=== PATIENT | female | born 1975 | race Caucasian/White ===

== ENCOUNTER 2017-06-04 01:56 | Emergency (ER) | payer OTHER ==
[~2017-06-04] VITALS: Ht 157.5 cm; Wt 87.2 kg
[~2017-06-04 01:56] MED LIST: CETI10CA PO
[2017-06-04] MEDS ORDERED: LISI-167 PO (02:06)
[2017-06-04] MEDS ORDERED: ONDANSETRON 2MG/ML, 2ML ONE (02:21)
[2017-06-04] MEDS ORDERED: MORPHINE SULFATE 4 MG/ML, 1ML ONE ×2 (02:21→03:28)
[2017-06-04] MEDS ORDERED: ONDANSETRON 2MG/ML, 2ML IVPush ONE (02:30)
[2017-06-04] MEDS ORDERED: SODIUM CHLORIDE FLUSH 10ML SYR IVF ONE (02:30)
[2017-06-04] MEDS: MORPHINE SULFATE 4 MG/ML, 1ML IVPush PRN ×2 (02:30→03:34)
[2017-06-04] MEDS ORDERED: SODIUM CHLORIDE 0.9% 1,000ML IVBOLUS ONE (02:30)
[2017-06-04 02:31] LABS: HEMATOCRIT 43.4 % (34.6-47.8); HEMOGLOBIN 14.4 g/dL (11.7-16.4); WHITE BLOOD COUNT 11.8 x10^3/uL (3.4-10)
[2017-06-04 02:41] LABS: ASPARTATE AMINO TRANSFERASE 25 U/L (15-37); BLOOD UREA NITROGEN 9 mg/dL (7-18)
[2017-06-04] MEDS ORDERED: OMNIPAQUE 350 MG/ML, 100ML BOTTLE ONE (03:29)
[2017-06-04 04:44] VITALS: BP 120/57
== END 2017-06-04 05:00 | disposition home or self-care (01) ==
LOC: ED 02:08
DX: K57.32 Diverticulitis of large intestine without perforation or abscess without bleeding (principal); I10 Essential (primary) hypertension; Z90.49 Acquired absence of other specified parts of digestive tract
CPT/HCPCS: 36415; 74177; 80053; 81003; 83690; 84703; 85025; 96361; 96374; 96375; 96376; 99285; J2405; J7030; Q9967

== ENCOUNTER 2018-08-10 07:40 | Emergency (ER) | payer OTHER ==
[~2018-08-10] VITALS: Ht 157.5 cm; Wt 93.7 kg
[~2018-08-10 07:40] MED LIST changes: +LISI-167 PO
[2018-08-10] MEDS ORDERED: ONDANSETRON ODT 4 MG PO ONE (08:00)
[2018-08-10] MEDS ORDERED: ONDANSETRON 2MG/ML, 2ML ONE (08:04)
[2018-08-10] MEDS ORDERED: HYDROmorphone 2 MG/ML, 1ML ONE ×2 (08:04→09:38)
[2018-08-10] MEDS ORDERED: SODIUM CHLORIDE FLUSH 10ML SYR IVF ONE (08:30)
[2018-08-10 08:44] LABS: BASOPHILS # (AUTO) 0.07 x10^3/uL (0-0.1); BASOPHILS % (AUTO) 1 % (0-1); EOSINOPHILS # (AUTO) 0.24 x10^3/uL (0-0.4); EOSINOPHILS % (AUTO) 3 % (1-7); LYMPHOCYTES # (AUTO) 2.58 x10^3/uL (1-3.4); LYMPHOCYTES % (AUTO) 30 % (22-44); MD NO; MEAN CORPUSCULAR HEMOGLOBIN 32.6 pg (27.0-34.8); MEAN CORPUSCULAR HGB CONC 34.8 g/dL (32.4-35.8); MEAN CORPUSCULAR VOLUME 93.6 fL (80-100); MEAN PLATELET VOLUME 8.2 fL (7.4-10.4); MONOCYTES # (AUTO) 0.38 x10^3/uL (0.2-0.8); MONOCYTES % (AUTO) 4 % (2-9); NEUTROPHILS # (AUTO) 5.32 x10^3/uL (1.8-6.8); NEUTROPHILS % (AUTO) 62 % (42-75); PLATELET COUNT 323 x10^3/uL (130-400); RED BLOOD COUNT 4.32 x10^6/uL (3.82-5.3); RED CELL DISTRIBUTION WIDTH 13.1 % (9.6-15.2)
[2018-08-10] MEDS: HYDROmorphone 2 MG/ML, 1ML IVPush PRN ×2 (08:46→09:41)
[2018-08-10 08:55] LABS: ALANINE AMINOTRANSFERASE 52 U/L (12-78); ALBUMIN 3.5 g/dL (3.4-5.0); ANION GAP 8 mmol/L (5-15); CALCIUM 8.5 mg/dL (8.5-10.1); CHLORIDE 107 mmol/L (98-107); CREATININE 0.54 mg/dL (0.55-1.02)
[2018-08-10 08:57] LABS: ALKALINE PHOSPHATASE 85 U/L (45-117); TOTAL PROTEIN 6.5 g/dL (6.4-8.2)
[2018-08-10 09:36] LABS: HCG UR SG 1.029 (1.003-1.030); MICROSCOPIC NOT IND
[2018-08-10 09:53] LABS: CULTURE INDICATED? NO
[2018-08-10] MEDS ORDERED: OMNIPAQUE 350 MG/ML, 100ML BOTTLE ONE (10:48)
[2018-08-10 11:52] VITALS: BP 121/68
== END 2018-08-10 12:04 | disposition home or self-care (01) ==
LOC: ED 08:35
DX: R10.31 Right lower quadrant pain (principal); I10 Essential (primary) hypertension
CPT/HCPCS: 36415; 74177; 80053; 81003; 81025; 83690; 85025; 96374; 96376; 99285; J1170; Q0162; Q9967

== ENCOUNTER 2019-01-31 05:10 | Emergency (ER) | payer OTHER ==
[~2019-01-31] VITALS: Ht 162.6 cm; Wt 98.0 kg
--- NOTE | 2019-01-31 05:19 | NUR ---
PT STATES HAVING AN ANXIETY ATTACK X TONIGHT
[2019-01-31] MEDS ORDERED: LORazepam 1MG TABLET ONE (05:25)
[2019-01-31] MEDS ORDERED: LORazepam 1MG TABLET PO ONE (05:30)
--- NOTE | 2019-01-31 05:37 | NUR ---
MEDICATED PER MD ORDER, FAMILY AT BEDSIDE, IN NAD AT THIS TIME
[2019-01-31 05:48] LABS: BASOPHILS # (AUTO) 0.05 x10^3/uL (0-0.1); BASOPHILS % (AUTO) 1 % (0-1); EOSINOPHILS # (AUTO) 0.73 x10^3/uL (0-0.4); EOSINOPHILS % (AUTO) 10 % (1-7); LYMPHOCYTES # (AUTO) 2.26 x10^3/uL (1-3.4); LYMPHOCYTES % (AUTO) 32 % (22-44); MD NO; MEAN CORPUSCULAR HGB CONC 34.3 g/dL (32.4-35.8); MEAN CORPUSCULAR VOLUME 93.2 fL (80-100); MEAN PLATELET VOLUME 8.2 fL (7.4-10.4); MONOCYTES # (AUTO) 0.24 x10^3/uL (0.2-0.8); MONOCYTES % (AUTO) 3 % (2-9); NEUTROPHILS # (AUTO) 3.78 x10^3/uL (1.8-6.8); NEUTROPHILS % (AUTO) 54 % (42-75); PLATELET COUNT 317 x10^3/uL (130-400); RED BLOOD COUNT 4.43 x10^6/uL (3.82-5.3); RED CELL DISTRIBUTION WIDTH 13.5 % (9.6-15.2)
[2019-01-31 06:03] LABS: ALANINE AMINOTRANSFERASE 75 U/L (12-78); ALBUMIN 3.5 g/dL (3.4-5.0); ANION GAP 10 mmol/L (5-15); CALCIUM 7.9 mg/dL (8.5-10.1); CHLORIDE 115 mmol/L (98-107); CREATININE 0.49 mg/dL (0.55-1.02)
[2019-01-31 06:07] LABS: ALKALINE PHOSPHATASE 108 U/L (45-117); BILIRUBIN,TOTAL 0.4 mg/dL (0.2-1.0); TOTAL PROTEIN 6.7 g/dL (6.4-8.2); TROPONIN I < 0.015 ng/mL (0.000-0.045)
[2019-01-31 06:22] VITALS: BP 156/89
--- NOTE | 2019-01-31 06:41 | NUR ---
Patient/Caregiver given discharge instructions and they have confirmed that they understand the instructions. Patient ambulatory with steady gait.
== END 2019-01-31 06:42 | disposition home or self-care (01) ==
LOC: ED 06:30
DX: F41.1 Generalized anxiety disorder (principal); F10.129 Alcohol abuse with intoxication, unspecified
CPT/HCPCS: 36415; 71045; 80053; 80307; 84484; 84703; 85025; 93005; 99284

== ENCOUNTER 2019-08-19 07:35 | Emergency (ER) | payer OTHER ==
[~2019-08-19] VITALS: Ht 157.5 cm; Wt 95.5 kg
[2019-08-19 07:45] VITALS: BP 159/117
[2019-08-19] MEDS ORDERED: OXYcodone/APAP 5/325MG TABLET ONE (08:09)
[2019-08-19] MEDS ORDERED: OXYcodone/APAP 5/325MG TABLET PO ONE (08:30)
--- NOTE | 2019-08-19 09:32 | NUR ---
Patient/Caregiver given discharge instructions and they have confirmed that they understand the instructions. Patient demonstrates proper use of crutches. D/C via wheelchair
== END 2019-08-19 09:34 | disposition home or self-care (01) ==
LOC: ED 09:34
DX: S92.325A Nondisplaced fracture of second metatarsal bone, left foot, initial encounter for closed fracture (principal); X58.XXXA Exposure to other specified factors, initial encounter; Y93.89 Activity, other specified; Y92.89 Other specified places as the place of occurrence of the external cause; Y99.8 Other external cause status
CPT/HCPCS: 29515; 99283

== ENCOUNTER 2019-09-11 05:14 | Day surgery (SDC) | payer OTHER ==
[2019-09-08 15:28] LABS: ALANINE AMINOTRANSFERASE 82 U/L (12-78); ALBUMIN 3.6 g/dL (3.4-5.0); ANION GAP 6 mmol/L (5-15); CALCIUM 8.9 mg/dL (8.5-10.1); CHLORIDE 107 mmol/L (98-107); CREATININE 0.56 mg/dL (0.55-1.02)
[2019-09-08 15:31] LABS: ALKALINE PHOSPHATASE 106 U/L (45-117); BILIRUBIN,TOTAL 1.2 mg/dL (0.2-1.0); TOTAL PROTEIN 7.1 g/dL (6.4-8.2)
[~2019-09-11] VITALS: Ht 157.5 cm; Wt 99.8 kg
[~2019-09-11 05:14] MED LIST changes: +ACET650S21 PO; +DIPH25CA61 PO; +OXYC5CAP2 PO
[2019-09-11] MEDS ORDERED: LACTATED RINGERS 1,000 ML IV SCH (06:04)
[2019-09-11] MEDS ORDERED: LIDOCAINE-MPF 1%, 2ML INFIL ONE (06:30)
[2019-09-11] MEDS ORDERED: BUPIVACAINE/PF 0.25% ONE (06:31)
[2019-09-11] MEDS ORDERED: LIDOCAINE-MPF 2% ,5ML ONE (06:31)
[2019-09-11] MEDS ORDERED: MIDAZOLAM 1 MG/ML, 2ML ONE (06:32)
[2019-09-11] MEDS ORDERED: FENTANYL PF 100 MCG/2ML ONE ×4 (06:32→10:03)
[2019-09-11 06:35] VITALS: BP 148/85
[2019-09-11] MEDS ORDERED: GABAPENTIN 300 MG CAPSULE PO ONE (07:00)
[2019-09-11] MEDS ORDERED: ACETAMINOPHEN 500 MG TABLET PO ONE (07:00)
[2019-09-11] MEDS ORDERED: CEFAZOLIN 1,000 MG ONE ×2 (07:11)
[2019-09-11] MEDS ORDERED: DEXAMETHASONE 4 MG/ML, 1ML ONE ×2 (07:12→07:13)
[2019-09-11] MEDS ORDERED: KETOROLAC 30 MG/1 ML ONE (07:14)
[2019-09-11] MEDS ORDERED: EPHEDRINE 50 MG/ML, 1ML IVPush PRN (07:30)
[2019-09-11] MEDS ORDERED: hydrALAzine 20 MG/ML, 1ML IV PRN (07:30)
[2019-09-11] MEDS ORDERED: PROMETHAZINE 25 MG/ML, 1ML IV PRN (07:30)
[2019-09-11] MEDS ORDERED: HYDROmorphone 2 MG/ML, 1ML IVPush PRN (07:30)
[2019-09-11] MEDS ORDERED: MEPERIDINE/PF 25MG/ML,1ML IVPush PRN (07:30)
[2019-09-11] MEDS ORDERED: ONDANSETRON 2MG/ML, 2ML IV PRN (07:30)
[2019-09-11] MEDS ORDERED: OXYcodone 5 MG/5 ML ORAL.SOL UDC PO PRN (07:30)
[2019-09-11] MEDS ORDERED: LABETALOL 5MG/ML, 20ML IV PRN (07:30)
[2019-09-11] MEDS: FENTANYL PF 100 MCG/2ML IV PRN ×2 (10:05→10:14)
[2019-09-11] MEDS ORDERED: OXYcodone 5 MG/5 ML ORAL.SOL UDC ONE (10:15)
[2019-09-11] MEDS ORDERED: HYDROmorphone 1 MG/ML, 1ML VIAL ONE (10:27)
[2019-09-11] MEDS ORDERED: SODIUM CHLORIDE 0.9% PF 10ML ONE (10:30)
[2019-09-11] MEDS ORDERED: PROPOFOL 10 MG/ML, 20ML ONE (17:30)
[2019-09-11] MEDS ORDERED: ONDANSETRON 2MG/ML, 2ML ONE (17:30)
== END 2019-09-11 13:20 | disposition home or self-care (01) ==
LOC: OUT 05:14
PROVIDERS: ATTEND Orthopaedic Surgery
DX: S93.326A Dislocation of tarsometatarsal joint of unspecified foot, initial encounter (principal); I10 Essential (primary) hypertension; Z79.891 Long term (current) use of opiate analgesic; Z79.899 Other long term (current) drug therapy; Z82.49 Family history of ischemic heart disease and other diseases of the circulatory system; X50.9XXA Other and unspecified overexertion or strenuous movements or postures, initial encounter; Y93.01 Activity, walking, marching and hiking; Y92.89 Other specified places as the place of occurrence of the external cause; Y99.8 Other external cause status
CPT/HCPCS: 20902; 28730; 36415; 64450; 73630; 80053; 81025; C1713; J0690; J1100; J1170; J1885; J2250; J2405; J2704; J3010; J3490; J7120; 76000

== ENCOUNTER → 2020-05-08 | Outpatient (CLI) | payer OTHER ==
[2020-05-08 12:48] LABS: BASOPHILS # (AUTO) 0.06 x10^3/uL (0-0.1); BASOPHILS % (AUTO) 1 % (0-1); EOSINOPHILS # (AUTO) 0.23 x10^3/uL (0-0.4); EOSINOPHILS % (AUTO) 3 % (1-7); LYMPHOCYTES # (AUTO) 1.87 x10^3/uL (1-3.4); LYMPHOCYTES % (AUTO) 22 % (22-44); MD NO; MEAN CORPUSCULAR HEMOGLOBIN 23.7 pg (27.0-34.8); MEAN CORPUSCULAR HGB CONC 32.1 g/dL (32.4-35.8); MEAN CORPUSCULAR VOLUME 73.8 fL (80-100); MEAN PLATELET VOLUME 7.3 fL (7.4-10.4); MONOCYTES # (AUTO) 0.49 x10^3/uL (0.2-0.8); MONOCYTES % (AUTO) 6 % (2-9); NEUTROPHILS # (AUTO) 5.85 x10^3/uL (1.8-6.8); NEUTROPHILS % (AUTO) 69 % (42-75); PLATELET COUNT 398 x10^3/uL (130-400); RED BLOOD COUNT 3.81 x10^6/uL (3.82-5.3); RED CELL DISTRIBUTION WIDTH 18.2 % (9.6-15.2)
== END | disposition home or self-care (01) ==
LOC: LAB 12:17
PROVIDERS: ATTEND Specialist
DX: Z00.00 Encounter for general adult medical examination without abnormal findings (principal)
CPT/HCPCS: 36415; 85025

== ENCOUNTER 2021-02-06 23:45 | Emergency (ER) | payer OTHER ==
[~2021-02-06] VITALS: Ht 157.5 cm; Wt 110.2 kg
--- NOTE | 2021-02-06 23:47 | NUR ---
INITIAL PT CONTACT. PT PRESENTS TO ED C/O LEFT LEG/KNEE PAIN, NO RECENT TRAUMA. PT STATES PAIN STARTED YESTERDAY. "I NOTICED IT WHEN I WAS GETTING A MASSAGE AND GOT WORRIED". PT DENIES ANY WARMTH, REDNESS OR SWELLING TO THE AREA BUT STATES PAIN "MIGRATES DOWN TO THE ARCH OF MY FOOT AND SOMETIMES INTO MY LOWER THIGH." PT SITTING UPRIGHT ON GURNEY, NADN, VSS. PT DENIES ANY NEEDS AT THIS TIME. CALL LIGHT AND PERSONAL BELONGINGS WITHIN REACH. AWAITING ERP.
--- NOTE | 2021-02-07 | NUR ---
ERP AT BEDSIDE
[2021-02-07] MEDS ORDERED: KETOROLAC 30 MG/1 ML ONE (00:07)
[2021-02-07] MEDS ORDERED: KETOROLAC 30 MG/1 ML IM ONE (00:30)
[2021-02-07 00:42] LABS: BASOPHILS % (AUTO) 1 % (0-1); EOSINOPHILS % (AUTO) 1 % (1-7); LYMPHOCYTES % (AUTO) 20 % (22-44); MEAN CORPUSCULAR HEMOGLOBIN 29.6 pg (27.0-34.8); MEAN PLATELET VOLUME 8.5 fL (7.4-10.4); MONOCYTES % (AUTO) 6 % (2-9); NEUTROPHILS % (AUTO) 72 % (42-75); PLATELET COUNT 380 x10^3/uL (130-400); RED BLOOD COUNT 4.01 x10^6/uL (3.82-5.3); RED CELL DISTRIBUTION WIDTH 14.1 % (9.6-15.2)
[2021-02-07 00:44] LABS: MD NO
[2021-02-07 00:45] LABS: ANION GAP 4 mmol/L (5-15); CALCIUM 8.8 mg/dL (8.5-10.1); CHLORIDE 108 mmol/L (98-107); CREATININE 0.56 mg/dL (0.55-1.02)
--- NOTE | 2021-02-07 00:45 | NUR ---
US AT BEDSIDE
--- NOTE | 2021-02-07 01:44 | NUR ---
Patient given discharge instructions and they have confirmed that they understand the instructions. Patient ambulatory with steady gait.
[2021-02-07 01:45] VITALS: BP 178/99
== END 2021-02-07 01:47 | disposition home or self-care (01) ==
LOC: ED 23:55
DX: M79.662 Pain in left lower leg (principal); I10 Essential (primary) hypertension; Z90.89 Acquired absence of other organs; Z90.49 Acquired absence of other specified parts of digestive tract; Z98.51 Tubal ligation status
CPT/HCPCS: 36415; 80048; 85025; 93971; 96372; 99284; J1885

== ENCOUNTER 2021-02-18 18:06 | Observation (INO) | payer OTHER ==
[~2021-02-18] VITALS: Ht 157.5 cm; Wt 107.9 kg
--- NOTE | 2021-02-18 18:30 | NUR ---
CP x1 hr, occured when she was sitting drinking a glass of wine. Numbness in fingers, stress due to daughter being in hospital. Pain located in the left side of chest and runs down L arm. Pt states that chest is tight and can't get a deep breath in. Pt to XRAY
[2021-02-18] MEDS ORDERED: LORazepam 2 MG/ML, 1ML ONE (18:37)
[2021-02-18 18:50] LABS: BASOPHILS % (AUTO) 1 % (0-1); EOSINOPHILS % (AUTO) 2 % (1-7); LYMPHOCYTES % (AUTO) 30 % (22-44); MEAN CORPUSCULAR HEMOGLOBIN 28.9 pg (27.0-34.8); MEAN CORPUSCULAR HGB CONC 33.1 g/dL (32.4-35.8); MEAN PLATELET VOLUME 8.2 fL (7.4-10.4); MONOCYTES % (AUTO) 4 % (2-9); NEUTROPHILS % (AUTO) 63 % (42-75); PLATELET COUNT 420 x10^3/uL (130-400); RED CELL DISTRIBUTION WIDTH 14.5 % (9.6-15.2)
[2021-02-18 18:52] LABS: MD NO
[2021-02-18 18:56] LABS: ALBUMIN 3.5 g/dL (3.4-5.0); ANION GAP 10 mmol/L (5-15); CALCIUM 8.7 mg/dL (8.5-10.1); CHLORIDE 108 mmol/L (98-107)
[2021-02-18] MEDS ORDERED: LORazepam 2 MG/ML, 1ML IVPush ONE (19:00)
[2021-02-18 19:03] LABS: ALANINE AMINOTRANSFERASE 146 U/L (12-78); ALKALINE PHOSPHATASE 115 U/L (45-117); BILIRUBIN,TOTAL 0.6 mg/dL (0.2-1.0); CREATININE 0.52 mg/dL (0.55-1.02); TROPONIN I < 0.015 ng/mL (0.000-0.045)
[2021-02-18] MEDS ORDERED: NITROGLYCERIN SINGLE TAB 0.4 MG SL ONE (19:48)
[2021-02-18] MEDS ORDERED: NITROGLYCERIN 0.4 MG BOTTLE (25 TABS) SL PRN ×2 (20:00→22:00)
[2021-02-18] MEDS ORDERED: ASPIRIN 325 MG TABLET EC ONE (20:07)
[2021-02-18] MEDS ORDERED: ASPIRIN 81 MG TABLET CHEW ONE (20:11)
[2021-02-18] MEDS ORDERED: FENTANYL PF 100 MCG/2ML ONE (20:20)
[2021-02-18] MEDS ORDERED: FENTANYL PF 100 MCG/2ML IVPush ONE (20:30)
[2021-02-18] MEDS ORDERED: SODIUM CHLORIDE 0.9%, 500ML IVBOLUS ONE (20:30)
[2021-02-18] MEDS ORDERED: ASPIRIN 81 MG TABLET CHEW PO ONE (20:30)
[2021-02-18] MEDS: SODIUM CHLORIDE FLUSH 10ML SYR IVF SCH (21:35)
[2021-02-18] MEDS ORDERED: TEMPLATE NON-FORMULARY MED. (Cetirizine Hcl** (Zyrtec**) 10 MG) PO PRN (22:00)
[2021-02-18] MEDS ORDERED: ONDANSETRON 2MG/ML, 2ML IVPush PRN (22:00)
[2021-02-18] MEDS ORDERED: LORazepam 1MG TABLET PO PRN (22:00)
[2021-02-18] MEDS ORDERED: POLYETHYLENE GLYCOL 17 GM PACKET PO PRN (22:00)
[2021-02-18] MEDS ORDERED: BISACODYL 10 MG SUPP PR PRN (22:00)
--- NOTE | 2021-02-18 22:15 | NUR ---
Report to Aylin MAZARIEGOS
[2021-02-18] MEDS ORDERED: MONT10TA6 PO (22:43)
[2021-02-18 22:45] VITALS: BP 122/79
[2021-02-19 00:43] LABS: TROPONIN I < 0.015 ng/mL (0.000-0.045)
[2021-02-19 03:25] VITALS: BP 118/81
[2021-02-19] MEDS: morphine SULFATE 10 MG/ML, 1ML IVPush PRN ×2 (05:55→10:50)
[2021-02-19 05:58] VITALS: BP 154/87
[2021-02-19] MEDS ORDERED: ASPIRIN 81 MG TABLET EC PO SCH (06:00)
[2021-02-19] MEDS ORDERED: ASPIRIN 325 MG TABLET EC PO SCH (06:00)
[2021-02-19 06:49] LABS: ALANINE AMINOTRANSFERASE 116 U/L (12-78); ALBUMIN 3.1 g/dL (3.4-5.0); ANION GAP 5 mmol/L (5-15); CALCIUM 8.4 mg/dL (8.5-10.1); CHLORIDE 111 mmol/L (98-107); CHOLESTEROL, TOTAL 166 mg/dL (140-239); CREATININE 0.43 mg/dL (0.55-1.02)
[2021-02-19 06:54] LABS: ALKALINE PHOSPHATASE 103 U/L (45-117); BILIRUBIN,TOTAL 0.6 mg/dL (0.2-1.0); CHOL/HDL RATIO 3.7; HDL CHOL % 27 % (28-40); HDL CHOLESTEROL (DIRECT) 45 mg/dL (40-60); LDL CHOLESTEROL,CALCULATED 102 mg/dL (54-169); LDL/HDL RATIO 2.3 (0.5-3.0); TOTAL PROTEIN 6.2 g/dL (6.4-8.2); TRIGLYCERIDES 93 mg/dL (50-200); TROPONIN I < 0.015 ng/mL (0.000-0.045); VLDL CHOLESTEROL 19 mg/dL (0-25)
[2021-02-19] MEDS ORDERED: REGADENOSON 0.4 MG/5 ML SYRINGE ONE (07:55)
[2021-02-19] MEDS ORDERED: LISINOPRIL 10 MG TABLET PO SCH (09:00)
[2021-02-19] MEDS ORDERED: SENNA/DOCUSATE TABLET PO SCH (09:00)
[2021-02-19] MEDS ORDERED: ASPI81TA45 PO (10:13)
[2021-02-19 10:30] VITALS: BP 147/90
[2021-02-19] MEDS: SODIUM CHLORIDE FLUSH 10ML SYR IVF SCH (10:50)
[2021-02-19 14:00] VITALS: BP 149/90
[2021-02-19 14:03] VITALS: BP 123/82
== END 2021-02-19 14:45 | disposition home or self-care (01) ==
LOC: ED 18:30 → EDIP 21:27 → INTOOBSV 21:27 → 5SO 22:26 → DCLOUNGE 02-19 14:40
PROVIDERS: ADMIT Internal Medicine; ATTEND Hospitalist
DX: R07.89 Other chest pain (principal); I10 Essential (primary) hypertension; R00.0 Tachycardia, unspecified; D47.3 Essential (hemorrhagic) thrombocythemia; R74.01 Elevation of levels of liver transaminase levels; E66.01 Morbid (severe) obesity due to excess calories; F41.1 Generalized anxiety disorder; Z79.899 Other long term (current) drug therapy; Z79.82 Long term (current) use of aspirin
CPT/HCPCS: 36415; 71045; 76700; 78452; 80053; 80061; 84484; 84703; 85025; 85379; 93005; 93017; 96374; 96375; 96376; 99285; A9502; G0378; J2060; J2270; J2405; J2785; J3010; J7040

== ENCOUNTER 2021-03-14 02:15 | Emergency (ER) | payer OTHER ==
[~2021-03-14] VITALS: Ht 160 cm; Wt 100.0 kg
[~2021-03-14 02:15] MED LIST changes: +ASPI81TA45 PO; +MONT10TA6 PO
--- NOTE | 2021-03-14 02:41 | NUR ---
[facility]
--- NOTE | 2021-03-14 02:58 | NUR ---
Report from DELILAH Corrigan. This RN to assume care. Awaiting lab and US.
[2021-03-14 03:13] LABS: BASOPHILS % (AUTO) 1 % (0-1); EOSINOPHILS % (AUTO) 3 % (1-7); LYMPHOCYTES % (AUTO) 31 % (22-44); MEAN CORPUSCULAR HEMOGLOBIN 27.8 pg (27.0-34.8); MEAN CORPUSCULAR HGB CONC 33.1 g/dL (32.4-35.8); MEAN PLATELET VOLUME 7.8 fL (7.4-10.4); MONOCYTES % (AUTO) 5 % (2-9); NEUTROPHILS % (AUTO) 60 % (42-75); PLATELET COUNT 433 x10^3/uL (130-400); RED BLOOD COUNT 3.78 x10^6/uL (3.82-5.3); RED CELL DISTRIBUTION WIDTH 15.1 % (9.6-15.2)
[2021-03-14 03:21] LABS: ALBUMIN 3.4 g/dL (3.4-5.0); ANION GAP 6 mmol/L (5-15); CALCIUM 8.4 mg/dL (8.5-10.1); CHLORIDE 113 mmol/L (98-107)
[2021-03-14 03:25] LABS: TROPONIN I < 0.015 ng/mL (0.000-0.045)
--- NOTE | 2021-03-14 03:38 | NUR ---
Report to DELILAH Ashley. Patient care transferred.
[2021-03-14] MEDS ORDERED: LORazepam 1MG TABLET ONE (03:51)
[2021-03-14 03:53] VITALS: BP 140/86
[2021-03-14] MEDS ORDERED: LORazepam 1MG TABLET PO ONE (04:00)
--- NOTE | 2021-03-14 04:04 | NUR ---
1ST CONTACT C PT. RESTING ON CART. U/S AT BS FINISHING UP. MEDS PER DEC. TOLERATED WELL. VSS. FAMILY AT BS. WILL CTM. CALL LIGHT INREACH. DENIES ANY OTHER NEEDS.
== END 2021-03-14 05:17 | disposition home or self-care (01) ==
LOC: ED 02:59
DX: R55 Syncope and collapse (principal); R07.89 Other chest pain; F41.1 Generalized anxiety disorder; R06.4 Hyperventilation; R00.0 Tachycardia, unspecified; I10 Essential (primary) hypertension
CPT/HCPCS: 36415; 80048; 82040; 83880; 84484; 84703; 85025; 85379; 93005; 99285